=== PATIENT | male | born 1995 | race Caucasian/White ===

== ENCOUNTER 2016-10-24 18:51 | Emergency (ER) | payer OTHER ==
--- NOTE | ~2016-10-24 | ER ---
PATIENT'S NAME: VITO [facility] AGE: 21 Y [address] ROOM: [place] [address] LOCATION: [facility] ADMIT DATE: 10/24/2016 ER/Outpatient Report DISCHARGE DATE: 10/24/2016 FAMILY PHYSICIAN: Physician, Unknown ATTENDING PHYSICIAN: Pauline Dejesus TIME OF ARRIVAL: 1850 hours. TIME OF EXAM: 1857 hours. CHIEF COMPLAINT: Cut to the left hand. HISTORY OF PRESENT ILLNESS: The patient states he was playing baseball approximately 1 hour prior to arrival when he got spiked in the left thumb pad. Denies any other injury. It is tender in that area, but he has good sensation to his fingers he states. ALLERGIES: HE HAS NO KNOWN ALLERGIES. CURRENT MEDICATIONS: Include cephalexin. PAST MEDICAL HISTORY: Recently diagnosed with a respiratory illness that is why he is on the cephalexin. PAST SURGERIES: Tonsillectomy. SOCIAL HISTORY: Denies use of tobacco, drugs, or alcohol. 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 His last tetanus shot is unknown. REVIEW OF SYSTEMS: All negative other than those mentioned in the HPI. PHYSICAL EXAMINATION: VITAL SIGNS: He weighed 72.1 kg. Blood pressure is 132/68, pulse is 65, respirations 16, temp of 97.5, and O2 sat was 95% on room air. GENERAL: He is awake, alert, and oriented x4. SKIN: [place], warm, and dry. PATIENT'S NAME: VITO [facility] AGE: 21 Y [address] ROOM: [place] [address] LOCATION: [facility] ADMIT DATE: 10/24/2016 ER/Outpatient Report DISCHARGE DATE: 10/24/2016 FAMILY PHYSICIAN: Physician, Unknown ATTENDING PHYSICIAN: Pauline Dejesus RESPIRATIONS: Even and nonlabored. EXTREMITIES: The patient has a 3-cm laceration to the left palmar thumb pad area. He has strong radial and ulnar pulses. Nail beds are pink. He has good sensation and good range of motion of his thumb. PROCEDURE NOTE: Area was cleansed well with saline and Betadine anesthetized with 1% plain Xylocaine and closed with 4-0 Prolene x5 stitches. The patient tolerated the procedure well. Area was cleansed and dressing was applied. IMPRESSION: Laceration to the left hand. PLAN: Home, rest, and keep the areas clean and dry as possible. Discussed with him covering it especially when he is playing baseball. He is to finish the antibiotics that he is on. See primary provider if any signs of infection develop. Suture removal in 7 days. Patient and his father verbalized understanding. JANETH CHOUDHARY APRN FOR MD CATH[facility] FARMER/lester /[id number] d: 10/25/16251 t: 10/27/16 181, OUTPATIENT REPORT
== END 2016-10-24 19:28 | disposition disaster alternative care site (69) ==
LOC: GACC 18:51
PROC: 0HQGXZZ Repair Left Hand Skin, External Approach (ICD-10-PCS; principal; 2016-10-24)
DX: S61.412A Laceration without foreign body of left hand, initial encounter (principal); Z90.89 Acquired absence of other organs; W45.8XXA Other foreign body or object entering through skin, initial encounter; Y93.64 Activity, baseball; Y99.8 Other external cause status